=== PATIENT | female | born 1965 | race American Indian/Alaskan Native ===

== ENCOUNTER 2016-09-18 22:11 | Emergency (ER) | payer MEDICARE, MEDICAID ==
[2016-09-18 22:26] VITALS: BP 106/68; PULSE 101; RESP 20; TEMP 97.8; O2SAT 99
--- NOTE | 2016-09-19 00:55 | ED PDOC ---
HPI: General Adult Time Seen by Provider: 09/18/16 23:59 Chief Complaint (Nursing): Chest Pain Chief Complaint (Provider): right shoulder pain History Per: Patient History/Exam Limitations: no limitations Onset/Duration Of Symptoms: Days Have you had recent travel within the past 21 days to any of the following countries: [place], [place], [place] or [place]?: No Current Symptoms Are (Timing): Still Present Additional Complaint(s): 50yo female with PMHx including diabetes, kidney disease presents to the ED with c/o right shoulder pain since February 2016 and that time was diagnosed with costochondritis. Pain still persists and is worse when moving shoulder or moving around. Denies injury, shortness of breath, or other symptoms. Past Medical History Reviewed: Historical Data, Nursing Documentation, Vital Signs Vital Signs: Last Vital Signs Temp 97.8 F 09/18/16 22:20 Pulse 101 H 09/18/16 22:20 Resp 20 09/18/16 22:20 BP 106/68 09/18/16 22:20 Pulse Ox 99 09/19/16 01:00 - Medical History PMH: Depression, Diabetes (pre-diabetes, being monitored by PMD), Migraine, Chronic Kidney Disease (no dialysis) Denies: HIV - Surgical History Surgical History: Cholecystectomy - Family History Family History: States: No Known Family Hx Denies: CAD - Home Medications Home Medications: Ambulatory Orders Medication Instructions Recorded Ergocalciferol (Vitamin D2) 50,000 unit PO QWK 12/02/15 [Vitamin D2] Gabapentin [Neurontin] 100 mg PO TID 12/02/15 Labetalol [Trandate] 100 mg PO DAILY 12/02/15 Nortriptyline [Pamelor] 20 mg PO HS 12/02/15 Sodium Bicarbonate 650 mg PO DAILY 12/02/15 Topiramate [Topamax] 150 mg PO HS 12/02/15 Varenicline Tartrate [Chantix] 1 mg PO DAILY 12/02/15 Venlafaxine [Effexor XR] 75 mg PO HS 12/02/15 Zolpidem [Ambien] 10 mg PO HS 12/02/15 traZODone [Desyrel] 50 mg PO HS 12/02/15 Acetaminophen [Tylenol 325mg tab] 650 mg PO Q6H PRN #15 tab 02/15/16 Cyclobenzaprine [Cyclobenzaprine 10 mg PO BID #15 tab 09/19/16 HCl] - Allergies Allergies/Adverse Reactions: Allergies Allergy/AdvReac Type Severity Reaction Status Date / Time No Known Allergies Allergy Verified 02/15/16 13:56 Review of Systems ROS Statement: Except As Marked, All Systems Reviewed And Found Negative Constitutional: Positive for: Other (no injury ) Respiratory: Negative for: Shortness of Breath Musculoskeletal: Positive for: Shoulder Pain (right ) Physical Exam - Reviewed Nursing Documentation Reviewed: Yes Vital Signs Reviewed: Yes - Physical Exam Appears: Positive for: Well, No Acute Distress Head Exam: Positive for: ATRAUMATIC, NORMAL INSPECTION, NORMOCEPHALIC Skin: Positive for: Normal Color, Warm, Dry Cardiovascular/Chest: Positive for: Regular Rate, Rhythm. Negative for: Murmur , Tachycardia Respiratory: Positive for: Normal Breath Sounds. Negative for: Wheezing, Respiratory Distress Extremity: Positive for: Normal ROM, Tenderness (tender to palpation anterior deltoid region ), Other (right shoulder: no swelling or deformity, full ROM, neurovascularly intact ). Negative for: Deformity, Swelling Neurologic/Psych: Positive for: Alert, Oriented - ECG O2 Sat by Pulse Oximetry: 99 Pulse Ox Interpretation: Normal (RA) Medical Decision Making Medical Decision Makin: Impression: musculoskeletal injury, possibly arthritis Plan: Flexeril 10mg PO XR right shoulder reassess 0155: Patient feeling better and instructed to f/u w/ orthopedist. Will d/c at this time. Scribe Attestation: Documented by Clara Whyte acting as a scribe for Rajan Villanueva MD. Provider Scribe Attestation: All medical record entries made by the Scribe were at my direction and personally dictated by me. I have reviewed the chart and agree that the record accurately reflects my personal performance of the history, physical exam, medical decision making, and the department course for this patient. I have also personally directed, reviewed, and agree with the discharge instructions and disposition. Disposition - Clinical Impression Clinical Impression: Shoulder pain - Patient ED Disposition Is Patient to be Admitted: No Counseled Patient/Family Regarding: Studies Performed, Diagnosis, Need For Followup - Disposition Referrals: Germani Marie MD [Staff Provider] - Disposition: Routine/Home Disposition Time: 01:55 Condition: STABLE Prescriptions: Cyclobenzaprine [Cyclobenzaprine HCl] 10 mg PO BID #15 tab Instructions: Shoulder Pain (ED)
--- NOTE | 2016-09-19 13:37 | RAD ---
PROCEDURE: Radiographs of the Right Shoulder HISTORY: shoulder pain COMPARISON: 06/17/2010 FINDINGS: BONES: Normal. No fracture. JOINTS: Normal. Glenohumeral and acromioclavicular joints preserved. No osteoarthritis. SOFT TISSUES: Normal. OTHER FINDINGS: None. IMPRESSION: Normal radiographs of the right shoulder.
== END 2016-09-19 01:55 | disposition home or self-care (01) ==
LOC: H.ER 22:11
DX: M25.511 Pain in right shoulder (principal); E11.9 Type 2 diabetes mellitus without complications

== ENCOUNTER 2016-11-04 13:23 | Emergency (ER) | payer MEDICAID, MEDICARE ==
[2016-11-04 13:48] VITALS: BP 110/71; PULSE 82; RESP 17; TEMP 98.5; O2SAT 98
--- NOTE | 2016-11-04 14:14 | ED PDOC ---
HPI: Back Time Seen by Provider: 11/04/16 13:55 Chief Complaint (Nursing): Back Pain Chief Complaint (Provider): Lower back pain History Per: Patient History/Exam Limitations: no limitations Onset/Duration Of Symptoms: Days (6) Current Symptoms Are (Timing): Still Present Quality Of Discomfort: "Pain" Severity: Moderate Previous Symptoms: None Associated Symptoms: None Additional History Per: Patient Additional Complaint(s): The pt is a 50yo female, presents to the ED for evaluation of lower back pain for the past 6 days. Pt reports taking tylenol for the pain with no relief. She denies any heavy lifting, trauma or radiation of pain. Additionally, she denies any paresthesia or weakness. Currently, she offers no additional medical complaints. Past Medical History Reviewed: Historical Data, Nursing Documentation, Vital Signs Vital Signs: Last Vital Signs Temp 98.5 F 11/04/16 13:45 Pulse 82 11/04/16 13:45 Resp 17 11/04/16 13:45 BP 110/71 11/04/16 13:45 Pulse Ox 98 11/04/16 13:45 - Medical History PMH: Depression, Diabetes (pre-diabetes, being monitored by PMD), Migraine, Chronic Kidney Disease (no dialysis) Denies: HIV - Surgical History Surgical History: Cholecystectomy - Family History Family History: States: No Known Family Hx Denies: CAD - Immunization History Hx Tetanus Toxoid Vaccination: No Hx Influenza Vaccination: No Hx Pneumococcal Vaccination: No - Home Medications Home Medications: Ambulatory Orders Medication Instructions Recorded Ergocalciferol (Vitamin D2) 50,000 unit PO QWK 12/02/15 [Vitamin D2] Gabapentin [Neurontin] 100 mg PO TID 12/02/15 Labetalol [Trandate] 100 mg PO DAILY 12/02/15 Nortriptyline [Pamelor] 20 mg PO HS 12/02/15 Sodium Bicarbonate 650 mg PO DAILY 12/02/15 Topiramate [Topamax] 150 mg PO HS 12/02/15 Varenicline Tartrate [Chantix] 1 mg PO DAILY 12/02/15 Venlafaxine [Effexor XR] 75 mg PO HS 12/02/15 Zolpidem [Ambien] 10 mg PO HS 12/02/15 traZODone [Desyrel] 50 mg PO HS 12/02/15 Acetaminophen [Tylenol 325mg tab] 650 mg PO Q6H PRN #15 tab 02/15/16 Cyclobenzaprine [Cyclobenzaprine 10 mg PO BID #15 tab 09/19/16 HCl] - Allergies Allergies/Adverse Reactions: Allergies Allergy/AdvReac Type Severity Reaction Status Date / Time No Known Allergies Allergy Verified 02/15/16 13:56 Review of Systems ROS Statement: Except As Marked, All Systems Reviewed And Found Negative Musculoskeletal: Positive for: Back Pain (lower back pain) Neurological: Negative for: Weakness, Numbness Physical Exam - Reviewed Nursing Documentation Reviewed: Yes Vital Signs Reviewed: Yes - Physical Exam Appears: Positive for: Well, Non-toxic, No Acute Distress Head Exam: Positive for: ATRAUMATIC, NORMAL INSPECTION, NORMOCEPHALIC Skin: Positive for: Normal Color Eye Exam: Positive for: Normal appearance Neck: Positive for: Normal Cardiovascular/Chest: Positive for: Regular Rate, Rhythm Respiratory: Negative for: Respiratory Distress Back: Positive for: Other (lower lumbar midline tenderness and b/l lower back tenderness noted). Negative for: L CVA Tenderness, R CVA Tenderness Extremity: Positive for: Normal ROM. Negative for: Deformity Neurologic/Psych: Positive for: Alert, Oriented. Negative for: Motor/Sensory Deficits - ECG O2 Sat by Pulse Oximetry: 98 (RA) Pulse Ox Interpretation: Normal Medical Decision Making Medical Decision Making: Time: 1405 Impression: Lower back pain Plan: * CT Lumbar spine * CMP * CBC * Urinalysis * Reassess Scribe Attestation: Documented by Blossom Montilla acting as a scribe for Brianne Freedman MD. Provider Attestation: All medical record entries made by the Scribe were at my direction and personally dictated by me. I have reviewed the chart and agree that the record accurately reflects my personal performance of the history, physical exam, medical decision making, and the department course for this patient. I have also personally directed, reviewed, and agree with the discharge instructions and disposition.
[2016-11-04 14:47] LABS: BASO % 0.7 % (0.0-2.0); EOS # 0.1 K/uL (0.0-0.7); EOS % 1.3 % (0.0-4.0); HEMATOCRIT 37.5 % (34.0-47.0); LYMPH # 1.8 K/uL (1.0-4.3); LYMPH % 31.3 % (20.0-40.0); MEAN CELL VOLUME 91.4 fl (81.0-99.0); MEAN CORPUSCULAR HEMOGLOBIN 30.1 pg (27.0-31.0); MEAN CORPUSCULAR HGB CONC 32.9 g/dL (33.0-37.0); MEAN PLATELET VOLUME 8.3 fl (7.2-11.7); MONO # 0.3 K/uL (0.0-0.8); NEUT # 3.4 K/uL (1.8-7.0); NEUT % 60.7 % (50.0-75.0); NRBC % 0.2 % (0.0-0.0); RED CELL DISTRIBUTION WIDTH 14.1 % (11.5-14.5); WHITE BLOOD COUNT 5.6 K/uL (4.8-10.8)
[2016-11-04 14:53] LABS: ALB/GLOB RATIO 1.2 (1.0-2.1); BILIRUBIN,TOTAL 0.3 mg/dl (0.2-1.3); CALCIUM 9.2 mg/dL (8.4-10.2); POTASSIUM 4.9 MMOL/L (3.6-5.0); TOTAL PROTEIN 7.5 G/DL (6.3-8.2)
[2016-11-04 15:16] LABS: RBC URINE 11 /hpf (0-3); URINE BACTERIA OCC (<OCC); URINE BILIRUBIN NEGATIVE (NEGATIVE); URINE BLOOD NEGATIVE (NEGATIVE); URINE COLOR YELLOW (YELLOW); URINE GLUCOSE (UA) NEG (Normal); URINE KETONE TRACE mg/dL (NEGATIVE); URINE LEUKOCYTE ESTERASE NEG Leu/uL (Negative); URINE PROTEIN 30 mg/dL (NEGATIVE); WBC URINE 1 /hpf (0-5)
--- NOTE | 2016-11-04 15:59 | CT ---
PROCEDURE: CT lumbar spine 11/04/2016 HISTORY: Low back pain COMPARISON: Comparison made with prior CT scan abdomen pelvis 05/01/2016 which image the lumbar spine in 3 planes. TECHNIQUE: Contiguous helical/ transaxial computed tomography images were obtained of the lumbar spine without the use of intravenous contrast. Coronal and sagittal reformatted images were created and reviewed. Radiation dose: Total exam DLP = 1761.09 mGy-cm. This CT exam was performed using one or more of the following dose reduction techniques: Automated exposure control, adjustment of the mA and/or kV according to patient size, and/or use of iterative reconstruction technique. . FINDINGS: VERTEBRAE: Current study reveals no acute compression fractures no retropulsed fragments. Vertebral bodies exhibit normal stature and alignment. Facets normally aligned. . DISCS/SPINAL CANAL/NEURAL FORAMINA: L1-2: Disc space height maintained. No disc herniation or significant disc bulge. Exit foramina appear adequate. L2-3: Disc space height maintained. No disc herniation or significant disc bulge. Exit foramina appear adequate L3-4: Disc space height maintained. No disc herniation or significant disc bulge. Exit foramina appear adequate L4-5: Minor disc space narrowing with small broad-based bulge of the posterior annulus that results in some flattening of the ventral surface of the thecal sac more so on the right side than the left. Central canal appears marginal to minimally narrowed. Facet joints are [id number] proximal exit foramina appear narrowed bilaterally. L5-S1: Peguero mild posterior disc space narrowing. Small central and bilateral disc bulge appears to reach the ventral surfaces of the descending S1 nerve roots. Central canal does appear adequate at this level. Facets are mild to moderately hypertrophic. Exit foramina appear stenotic bilaterally. PARASPINAL SOFT TISSUES: Unremarkable. OTHER FINDINGS: Nodular appearing adrenal glands left more so than right Note made of metallic clips gallbladder fossa consistent with prior cholecystectomy IMPRESSION: No acute fractures. Mild degenerative spondylosis most notably affecting the L4-L5 and L5-S1 levels as detailed above.
== END 2016-11-04 16:41 | disposition home or self-care (01) ==
LOC: H.ER 13:23
DX: M54.5 Low back pain (principal)